=== PATIENT | male | born 1995 | race Caucasian/White ===

== ENCOUNTER 2017-07-12 10:46 | Emergency (ER) | payer BC, SELFPAY ==
[2017-07-12 11:35] LABS: #Basophils 0.1 thou/uL (0.0-0.2); #Eosinphils 0.3 thou/uL (0.0-0.7); #Lymphocytes 1.4 thou/uL (1.20-3.40); #Monocytes 1.5 thou/uL (0.11-0.59); #Neutrophils 9.1 thou/uL (1.40-6.50); %Basophils 0.7 % (0.0-1.0); %Eosinophils 2.4 % (0.0-10.0); %Lymphocytes 11.4 % (21.0-51.0); %Monocytes 12.2 % (0.0-10.0); Hematocrit 54.3 % (42.0-52.0); Mean Platelet Volume 7.6 fL (7.4-10.4); White Blood Cell (WBC) Count 12.4 thou/uL (4.8-10.8)
[2017-07-12 11:56] LABS: ALT (SGPT) 11 U/L (8-55); AST (SGOT) 17 U/L (5-34); Alkaline Phosphatase 75 U/L (40-150); Anion Gap 12 mmol/L (10-20); BUN (Urea Nitrogen) 14 mg/dL (8.9-20.6); Bilirubin, Total 0.7 mg/dL (0.2-1.2); Calc. Creatinine Clearance 0 mL/min (70-130); Calcium 9.5 mg/dL (7.8-10.44); Carbon Dioxide 26 mmol/L (22-29); Chloride 104 mmol/L (98-107); Estimated GFR-MDRD 77; Protein, Total 7.2 g/dL (6.0-8.3)
[2017-07-12 12:00] LABS: Troponin I Less than 0.010 ng/mL (< 0.028)
--- NOTE | 2017-07-12 13:48 | RAD ---
PORTABLE CHEST: HISTORY: Chest pain. COMPARISON: 10/16/15 exam. FINDINGS: Heart size and mediastinum are within normal limits. The lungs are clear of infiltrates. IMPRESSION: No active intrathoracic disease. POS: [facility]
[2017-07-12] MEDS ORDERED: Ibuprofen 800 MG TAB ONE (14:00)
[2017-07-12 14:08] LABS: Bilirubin Negative (Negative); Blood, Urine Negative (Negative); Glucose, Urine (Dipstick) Negative (Negative); Ketone, Urine Negative (Negative); Nitrite Negative (Negative); Protein, Urine (Dipstick) Negative (Neg-Trace)
--- NOTE | 2017-07-12 16:41 | CT ---
CT ABDOMEN NONCONTRAST CT PELVIS NONCONTRAST: (urolithiasis protocol) DATE: 07-12-17 HISTORY: 21-year-old male with left flank pain. COMPARISON: None. TECHNIQUE: IV injection of iodinated contrast media: none Oral contrast media: none FINDINGS: Other than for urolithiasis, the lack of IV and oral contrast limits the evaluation. Lung bases are bilaterally clear. No pleural effusion. There is extremely severe dilation of all of t he left renal calices and left renal pelvis. There is no dilation of the left ureter, right ureter, o r right renal collecting system. There is no calculus within the kidneys, ureters, or urinary bladder . The left renal parenchyma is thin. There is fat stranding and unorganized fluid at the left upper perirenal space. Within the limitations of a noncontrast scan, no abnormality is identified involving the appendix, abdominal aorta, right kidney, adrenals, pancreas, liver, or spleen. No small bowel di latation. No fluid collection within the pelvic cavity. No pneumoperitoneum. Osseous structures are u nremarkable. IMPRESSION: 1. 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 2. Fat stranding and organized fluid surrounding the upper pole of the left kidney. This may represen t pyelocaliceal back flow blow out extravasation of urine. The other, less likely possibility, would be a small acute hematoma. 3. No urolithiasis. RIKI Velázquez POS: [facility]
--- NOTE | 2017-08-08 10:41 | EKG ---
Test Reason : Blood Pressure : / mmHG Vent. Rate : 077 BPM Atrial Rate : 077 BPM P-R Int : 124 ms QRS Dur : 092 ms QT Int : 348 ms P-R-T Axes : 052 072 053 degrees QTc Int : 393 ms Normal sinus rhythm Moderate voltage criteria for LVH, may be normal variant Borderline ECG Confirmed by TERESA LEWIS M.D. ([id number]), staff editor KELLY PAT ([id number]) on 08/08/2017 10:41:28 AM Referred By: Confirmed By:TERESA LEWIS M.D.
== END 2017-07-12 15:21 | disposition home or self-care (01) ==
LOC: ERS 10:46
DX: R07.89 Other chest pain (principal); N13.2 Hydronephrosis with renal and ureteral calculous obstruction; F17.210 Nicotine dependence, cigarettes, uncomplicated; J45.909 Unspecified asthma, uncomplicated
CPT/HCPCS: 36415; 71010; 74176; 80053; 81003; 82553; 84484; 85025; 85379; 93005; 94760; 99406